=== PATIENT | female | born 1990 | race Caucasian/White ===

== ENCOUNTER 2017-10-22 01:15 | Inpatient (IN) | payer OTHER ==
[~2017-10-22 01:15] MED LIST: CITRIC ACID/SODIUM CITRATE 30 ML UNIT-DOSE CUP PO ONE; ELECTROLYTE-148 SOLN 500 ML IV ONE
[2017-10-22] MEDS ORDERED: ELECTROLYTE-148 SOLN 1,000 ML IV SCH (01:45)
[2017-10-22 02:13] VITALS: BMI 30.5
[2017-10-22] MEDS: ELECTROLYTE-148 SOLN 1,000 ML IV SCH (04:00)
[2017-10-22] MEDS ORDERED: morphine SULFATE/Preservative Free 0.5 MG/ML (1cc Syringe) ONE (04:23)
[2017-10-22] MEDS ORDERED: ceFAZolin SODIUM 1 GM VIAL ONE (04:23)
--- NOTE | 2017-10-22 04:38 | HP ---
Past Medical History - Admission Chief Complaint: Labor pain History of Present Illness: 27 yo , @ 38 weeks gestation with breech presentation, admitted for labor pain. She's now pre op for primary . History Source: Patient Limitations to Obtaining History: No Limitations - Past Medical History ...: 4 ...Para: 0 ...Term: 0 ...: 0 ...Spon : 0 ...Induced : 0 ...Multiple Gestation: 0 ...EDC by Sono: 11/03/17 - Past Surgical History Past Surgical History: Yes: None Hx Myomectomy: No Hx Transabdominal Cerclage: No - Smoking History Smoking history: Never smoked Have you smoked in the past 12 months: No - Alcohol/Substance Use Hx Alcohol Use: No History of Substance Use: reports: None - Social History Usual Living Arrangement: Yes: With Significant Other History of Recent Travel: No Home Medications - Allergies Allergies/Adverse Reactions: Allergies Allergy/AdvReac Type Severity Reaction Status Date / Time No Known Allergies Allergy Verified 10/22/17 01:38 - Home Medications Home Medications: Ambulatory Orders Vitamins (Sjr) - 1 tab PO DAILY 10/22/17 Family Disease History - Family Disease History Family History: Unremarkable Review of Systems - Review of Systems Constitutional: reports: No Symptoms Eyes: reports: No Symptoms HENT: reports: No Symptoms Neck: reports: No Symptoms Cardiovascular: reports: No Symptoms Respiratory: reports: No Symptoms Gastrointestinal: reports: No Symptoms Genitourinary: reports: Pain Breasts: reports: No Symptoms Reported Musculoskeletal: reports: No Symptoms Integumentary: reports: No Symptoms Neurological: reports: No Symptoms Endocrine: reports: No Symptoms Hematology/Lymphatic: reports: No Symptoms Psychiatric: reports: No Symptoms Pain Intensity: 7 Physical Exam - Maternity Vital Signs: Vital Signs Temperature 97.5 F L 10/22/17 01:15 Pulse Rate 62 10/22/17 01:15 Respiratory Rate 18 10/22/17 01:15 Blood Pressure 130/72 10/22/17 01:15 O2 Sat by Pulse Oximetry (%) Constitutional: Yes: Well Nourished Eyes: Yes: Conjunctiva Clear HENT: Yes: Atraumatic Neck: Yes: Supple Cardiovascular: Yes: Regular Rate and Rhythm Lungs: Clear to auscultation - Abdominal Exam/OB Number of Fetuses: Single Presentation: Vertex - Vaginal Exam/OB Dilatation (cm): 1 Effacement (%): 60 Station: -2 - Physical Exam Integumentary: Yes: WNL ...Motor Strength: WNL Psychiatric: Yes: Alert, Oriented Problem List - Problems (1) Breech Code(s): O32.1XX0 - MATERNAL CARE FOR BREECH PRESENTATION, UNSP Assessment/Plan IUP @ 38 weeks Breech Pre op for Consent signed Anesthesia to see patient
[2017-10-22] MEDS ORDERED: morphine SULFATE/Preservative Free 0.5 MG/ML (1cc Syringe) SPIN ONE (04:39)
[2017-10-22] MEDS ORDERED: ePHEDrine SULFATE 50 MG/1 ML AMPULE ONE (04:41)
[2017-10-22] MEDS ORDERED: OXYTOCIN 10 UNITS/ML VIAL ONE (04:52)
[2017-10-22] MEDS ORDERED: ONDANSETRON 4 MG/2 ML VIAL IVPUSH PRN (05:06)
[2017-10-22] MEDS ORDERED: METHYLERGONOVINE MALEATE 0.2 MG/1 ML AMP IM PRN (05:36)
[2017-10-22] MEDS ORDERED: IBUPROFEN 600 MG TABLET (FP) PO PRN (05:36)
--- NOTE | 2017-10-22 05:40 | OP ---
Operative Note - Note: Operative Date: 10/22/17 Pre-Operative Diagnosis: Labor pain / Breech Operation: Primary Low Transverse Findings: Baby girl in RSA position Post-Operative Diagnosis: Same as Pre-op Surgeon: Gisel Villasenor Ergonomic Specialist: Octavio Irwin Anesthesia: Spinal Specimens Removed: Placenta Estimated Blood Loss (mls): 600 Operative Report Dictated: Yes
[2017-10-22] MEDS ORDERED: OXYTOCIN 20 UNITS in 0.9% NS 20 UNIT/1,000 ML INFUS.BAG IV ONE (06:25)
[2017-10-22] MEDS: OXYTOCIN 20 UNITS in 0.9% NS 20 UNIT/1,000 ML INFUS.BAG IV SCH ×2 (06:28→11:42)
--- NOTE | 2017-10-22 06:34 | OP ---
DATE OF OPERATION: 10/22/2017 PREOPERATIVE DIAGNOSES: Pain in labor and breech presentation. POSTOPERATIVE DIAGNOSES: Pain in labor and breech presentation. PROCEDURE: Primary low transverse section. SURGEON: Gisel Villasenor MD APPLIANCE REPAIRER: ANDREEA Bee ANESTHESIA: Spinal. COMPLICATIONS: None. ESTIMATED BLOOD LOSS: 600 mL. PROCEDURE: Patient was taken to the operating room where spinal anesthesia was administered. Patient was then prepped and draped in proper sterile fashion. A Pfannenstiel skin incision was made and carried down to the underlying layer of fascia. The fascia was incised in the midline and extended laterally. The superior aspect of the fascial incision was then grasped with a Mau clamp, elevated and the rectus muscle dissected off bluntly. Attention was then turned to the inferior aspect of the fascial incision which in a similar fashion was then grasped with a Mau clamp, elevated and the rectus muscle dissected off bluntly. The rectus muscle was then in the midline, the peritoneum identified and entered sharply with the Metzenbaum scissors. This incision was extended superiorly and inferiorly with good visualization of the bladder and the vesicouterine peritoneum was then grasped with a pickup and entered sharply with the Metzenbaum scissors. This incision was extended laterally and a bladder flap created digitally. The bladder blade was reinserted and using a 10 blade the lower uterine segment was incised and the buttocks were delivered. Baby was found to be in jaylene breech position and then using a towel around the baby's waist the baby was turned on a 90-degree angle and both sides were delivered. The nose and mouth were suctioned and the cord clamped and cut. The was handed to the waiting nurse discharge. The placenta was removed manually. The uterus was exteriorized to clear all the debris and the uterine incision was repaired using 0 Biosyn in a running locked fashion. A 2nd layer of the same suture was used as a means to provide excellent hemostasis. The vesicouterine peritoneum was also closed and the pelvis was irrigated. The uterus was returned to the abdomen. The peritoneum was closed using 2-0 Biosyn and the fascia was reapproximated using 0 Vicryl in a running fashion. The skin was closed in a subcuticular fashion using 3-0 Vicryl. Patient tolerated procedure well. Patient was then taken to PACU in stable condition. PATHOLOGY: Placenta. GISEL VILLASENOR M.D. BLAS/[id number]
[2017-10-22] MEDS: PRENATAL VITAMINS W/ FOLIC ACID TABLET (FP) PO SCH (10:24)
[2017-10-22] MEDS: FERROUS SO4 325 MG TABLET (FP) PO SCH ×2 (10:24→21:28)
[2017-10-22] MEDS: IBUPROFEN 800 MG/8 ML IJ IVPB PRN (15:44)
[2017-10-22] MEDS: oxyCODONE HCL 5 MG TABLET PO PRN (21:28)
[2017-10-22] MEDS: SIMETHICONE 80 MG TAB.CHEW (FP) PO PRN (21:28)
[2017-10-23] MEDS: IBUPROFEN 800 MG/8 ML IJ IVPB PRN (00:33)
[2017-10-23] MEDS ORDERED: BISACODYL 10 MG SUPP.RECT RC PRN (05:36)
[2017-10-23] MEDS: SIMETHICONE 80 MG TAB.CHEW (FP) PO PRN ×4 (05:45→21:28)
[2017-10-23] MEDS: oxyCODONE HCL 5 MG TABLET PO PRN ×4 (05:45→21:29)
[2017-10-23] MEDS: ACETAMINOPHEN 325 MG TABLET (FP) PO PRN ×4 (05:46→21:29)
[2017-10-23 08:27] LABS: BASO % 0.3 % (0-2.0); EOS % 0.4 % (0-4.5); HEMATOCRIT 34.6 % (32.4-45.2); HEMOGLOBIN 11.8 GM/dL (10.7-15.3); LYMPH % 17.1 % (8-40); MCH 30.9 pg (25.7-33.7); MCHC 34.1 g/dl (32.0-36.0); MEAN CELL VOLUME 90.7 fl (80-96); MEAN PLT VOLUME 7.7 fl (7.5-11.1); MONO % 11.3 % (3.8-10.2); NEUT % 70.9 % (42.8-82.8); PLATELET COUNT 216 K/MM3 (134-434); RBC 3.81 M/mm3 (3.60-5.2); WHITE BLOOD COUNT 12.5 K/mm3 (4.0-10.0)
[2017-10-23] MEDS: IBUPROFEN 600 MG TABLET (FP) PO PRN ×2 (08:41→18:05)
--- NOTE | 2017-10-23 09:04 | PN ---
Progress Note, Physician Chief Complaint: Pt. ambulating and voiding, pain controlled, no anesthesia complaints. - Current Medication List Current Medications: Active Medications Acetaminophen (Tylenol -) 650 mg PO Q4H PRN PRN Reason: PAIN Last Admin: 10/23/17 05:46 Dose: 650 mg Bisacodyl (Dulcolax Suppository -) 10 mg RC PRN PRN PRN Reason: CONSTIPATION Diphenhydramine HCl (Benadryl Injection -) 25 mg IVPUSH Q4H PRN PRN Reason: Pruritis Last Admin: 10/22/17 21:30 Dose: 25 mg Ferrous Sulfate (Feosol -) 325 mg PO BID [facility] Last Admin: 10/22/17 21:28 Dose: 325 mg Parenteral Electrolytes (Plasma-Lyte 148 -) 1,000 mls @ 125 mls/hr IV ASDIR [facility] Last Admin: 10/22/17 04:00 Dose: 125 mls/hr Oxytocin/Sodium Chloride (Normal Saline+20 Units Oxytocin -) 20 unit in 1,000 mls @ 125 mls/hr IV ASDIR [facility] Last Admin: 10/22/17 11:42 Dose: 125 mls/hr Ibuprofen (Motrin -) 600 mg PO Q4H PRN PRN Reason: PAIN Last Admin: 10/23/17 08:41 Dose: 600 mg Ibuprofen (Caldolor Injection -) 800 mg IVPB Q8H PRN PRN Reason: PAIN Last Admin: 10/23/17 00:33 Dose: 800 mg Methylergonovine Maleate (Methergine Injection -) 0.2 mg IM Q4H PRN PRN Reason: Excessive Bleeding (L&D) Ondansetron HCl (Zofran Injection) 4 mg IVPUSH Q4H PRN PRN Reason: NAUSEA Oxycodone HCl (Roxicodone -) 5 mg PO Q4H PRN PRN Reason: PAIN LEVEL 4 - 6 Last Admin: 10/23/17 05:45 Dose: 5 mg Multivit/Folic Acid/Iron ( Vitamins (Sjr) -) 1 tab PO DAILY [facility] Last Admin: 10/22/17 10:24 Dose: Not Given Simethicone (Mylicon -) 80 mg PO Q4H PRN PRN Reason: GAS Last Admin: 10/23/17 05:45 Dose: 80 mg - Objective Vital Signs: Vital Signs Temperature 98.3 F 10/23/17 04:00 Pulse Rate 61 10/23/17 04:00 Respiratory Rate 18 10/23/17 06:00 Blood Pressure 112/65 10/23/17 04:00 O2 Sat by Pulse Oximetry (%) 100 10/22/17 21:30 Constitutional: Yes: Well Nourished, No Distress, Calm Musculoskeletal: Yes: WNL Neurological: Yes: WNL, Alert, Oriented ...Motor Strength: WNL Labs: CBC, BMP 10/23/17 06:30 Assessment/Plan POD#1 s/p under spinal with duramorph. Doing well. D/C from anesthesia care.
[2017-10-23] MEDS: FERROUS SO4 325 MG TABLET (FP) PO SCH ×2 (10:29→21:28)
[2017-10-23] MEDS: PRENATAL VITAMINS W/ FOLIC ACID TABLET (FP) PO SCH (10:29)
--- NOTE | 2017-10-23 22:13 | PN ---
Post Progress Note - Subjective Subjective: 27 yo Para 1 status post primary , seen and evaluated. Doing well. Post Day: 1 Type of Delivery: Primary C/S Vital Signs: Vital Signs Temperature 98.4 F 10/23/17 15:20 Pulse Rate 74 10/23/17 15:20 Respiratory Rate 20 10/23/17 15:20 Blood Pressure 135/80 10/23/17 15:20 O2 Sat by Pulse Oximetry (%) 100 10/22/17 21:30 Breast Exam: Yes: Soft Uterus: Yes: Fundus Firm Incision: Yes: Dressing dry and intact Abdomen/GI: Yes: Abdomen soft, Tolerating PO Lochia: Yes: Rubra Lochia, amount: Small Extremities: Yes: Calves non-tender Activity: Ambulating - Labs Labs: CBC WBC 12.5 K/mm3 (4.0-10.0) H D 10/23/17 06:30 RBC 3.81 M/mm3 (3.60-5.2) 10/23/17 06:30 Hgb 11.8 GM/dL (10.7-15.3) 10/23/17 06:30 Hct 34.6 % (32.4-45.2) 10/23/17 06:30 MCV 90.7 fl (80-96) 10/23/17 06:30 MCH 30.9 pg (25.7-33.7) 10/23/17 06:30 MCHC 34.1 g/dl (32.0-36.0) 10/23/17 06:30 RDW 13.0 % (11.6-15.6) 10/23/17 06:30 Plt Count 216 K/MM3 (134-434) 10/23/17 06:30 MPV 7.7 fl (7.5-11.1) 10/23/17 06:30 Neutrophils % 70.9 % (42.8-82.8) 10/23/17 06:30 Lymphocytes % 17.1 % (8-40) 10/23/17 06:30 Monocytes % 11.3 % (3.8-10.2) H 10/23/17 06:30 Eosinophils % 0.4 % (0-4.5) 10/23/17 06:30 Basophils % 0.3 % (0-2.0) 10/23/17 06:30 Problem List - Problems (1) Breech Code(s): O32.1XX0 - MATERNAL CARE FOR BREECH PRESENTATION, UNSP (2) Status post primary low transverse section Code(s): Z98.891 - HISTORY OF UTERINE SCAR FROM PREVIOUS SURGERY Assessment/Plan Status post primary Ambulation Analgesia as needed Continue post op care
[2017-10-24] MEDS: oxyCODONE HCL 5 MG TABLET PO PRN ×5 (03:39→20:29)
[2017-10-24] MEDS: ACETAMINOPHEN 325 MG TABLET (FP) PO PRN ×2 (03:39→07:39)
[2017-10-24] MEDS: SIMETHICONE 80 MG TAB.CHEW (FP) PO PRN ×5 (03:39→20:29)
--- NOTE | 2017-10-24 04:42 | PN ---
Post Progress Note - Subjective Subjective: 27 yo Para status post primary , seen and evaluated. She's ambulating and c/o incision pain. Post Day: 2 Type of Delivery: Primary C/S Vital Signs: Vital Signs Temperature 98.3 F 10/23/17 22:00 Pulse Rate 66 10/23/17 22:00 Respiratory Rate 18 10/23/17 22:00 Blood Pressure 119/66 10/23/17 22:00 O2 Sat by Pulse Oximetry (%) 100 10/22/17 21:30 Breast Exam: Yes: Soft Uterus: Yes: Fundus Firm Incision: Yes: Other (Dressing removed, steri strips intact) Abdomen/GI: Yes: Abdomen soft, Tolerating PO Lochia: Yes: Rubra Lochia, amount: Small Extremities: Yes: Calves non-tender Perineum: Yes: Intact Activity: Ambulating - Labs Labs: CBC WBC 12.5 K/mm3 (4.0-10.0) H D 10/23/17 06:30 RBC 3.81 M/mm3 (3.60-5.2) 10/23/17 06:30 Hgb 11.8 GM/dL (10.7-15.3) 10/23/17 06:30 Hct 34.6 % (32.4-45.2) 10/23/17 06:30 MCV 90.7 fl (80-96) 10/23/17 06:30 MCH 30.9 pg (25.7-33.7) 10/23/17 06:30 MCHC 34.1 g/dl (32.0-36.0) 10/23/17 06:30 RDW 13.0 % (11.6-15.6) 10/23/17 06:30 Plt Count 216 K/MM3 (134-434) 10/23/17 06:30 MPV 7.7 fl (7.5-11.1) 10/23/17 06:30 Neutrophils % 70.9 % (42.8-82.8) 10/23/17 06:30 Lymphocytes % 17.1 % (8-40) 10/23/17 06:30 Monocytes % 11.3 % (3.8-10.2) H 10/23/17 06:30 Eosinophils % 0.4 % (0-4.5) 10/23/17 06:30 Basophils % 0.3 % (0-2.0) 10/23/17 06:30 Problem List - Problems (1) Breech Code(s): O32.1XX0 - MATERNAL CARE FOR BREECH PRESENTATION, UNSP (2) Status post primary low transverse section Code(s): Z98.891 - HISTORY OF UTERINE SCAR FROM PREVIOUS SURGERY Assessment/Plan Status post primary Ambulation Analgesia as needed Continue post op care
[2017-10-24] MEDS: OXYTOCIN 20 UNITS in 0.9% NS 20 UNIT/1,000 ML INFUS.BAG IV SCH (07:37)
[2017-10-24] MEDS: IBUPROFEN 600 MG TABLET (FP) PO PRN ×4 (08:12→20:29)
[2017-10-24] MEDS: PRENATAL VITAMINS W/ FOLIC ACID TABLET (FP) PO SCH (10:26)
[2017-10-24] MEDS: FERROUS SO4 325 MG TABLET (FP) PO SCH ×2 (10:28→21:08)
[2017-10-25] MEDS: SIMETHICONE 80 MG TAB.CHEW (FP) PO PRN ×5 (00:36→23:41)
[2017-10-25] MEDS: oxyCODONE HCL 5 MG TABLET PO PRN ×2 (00:36→04:30)
[2017-10-25] MEDS: IBUPROFEN 600 MG TABLET (FP) PO PRN ×5 (00:36→23:41)
--- NOTE | 2017-10-25 07:09 | PN ---
Post Note - Post Date of Delivery: 10/22/17 Vital Signs: Vital Signs - 24 hr 10/24/17 10/24/17 10:00 21:54 Temperature 98.6 F 98.4 F Pulse Rate 70 70 Respiratory 20 20 Rate Blood Pressure 109/71 116/67 - Subjective Subjective: No Complaints, Ambulating - Objective Afebrile: Yes Breast: Not engorged Abdomen: Non-tender Uterus: Fundus firm Vagina: Scant lochia Extremities: Non-tender - Assessment/Plan (1) Status post primary low transverse section Assessment: Other (POD 3 stable) Plan: Routine Care, Other (DC home in am RTO 4 week)
[2017-10-25 08:26] LABS: BASO % 0.4 % (0-2.0); EOS % 3.4 % (0-4.5); HEMATOCRIT 30.2 % (32.4-45.2); HEMOGLOBIN 10.3 GM/dL (10.7-15.3); MCHC 34.2 g/dl (32.0-36.0); MEAN CELL VOLUME 90.6 fl (80-96); MEAN PLT VOLUME 7.5 fl (7.5-11.1); MONO % 9.5 % (3.8-10.2); NEUT % 61.7 % (42.8-82.8); PLATELET COUNT 240 K/MM3 (134-434); RBC 3.33 M/mm3 (3.60-5.2); RDW 12.9 % (11.6-15.6); WHITE BLOOD COUNT 6.1 K/mm3 (4.0-10.0)
[2017-10-25] MEDS: ACETAMINOPHEN 325 MG TABLET (FP) PO PRN ×3 (09:21→23:41)
[2017-10-25] MEDS: FERROUS SO4 325 MG TABLET (FP) PO SCH ×2 (09:21→23:10)
[2017-10-25] MEDS: PRENATAL VITAMINS W/ FOLIC ACID TABLET (FP) PO SCH (09:21)
[2017-10-25] MEDS ORDERED: oxyCODONE HCL 5 MG TABLET PO PRN (13:07)
[2017-10-25] MEDS: OXYTOCIN 20 UNITS in 0.9% NS 20 UNIT/1,000 ML INFUS.BAG IV SCH (14:10)
[2017-10-25] MEDS: ELECTROLYTE-148 SOLN 1,000 ML IV SCH (14:11)
[2017-10-26 01:00] VITALS: TEMP 98.4
[2017-10-26 08:12] VITALS: BP 120/79; PULSE 62
[2017-10-26] MEDS: FERROUS SO4 325 MG TABLET (FP) PO SCH (09:44)
[2017-10-26] MEDS: PRENATAL VITAMINS W/ FOLIC ACID TABLET (FP) PO SCH (09:44)
--- NOTE | 2017-10-26 10:53 | DS ---
Physical Exam-HEMATOLOGY NURSE Vital Signs: Vital Signs Temperature 98.4 F 10/26/17 07:30 Pulse Rate 62 10/26/17 07:30 Respiratory Rate 20 10/26/17 07:30 Blood Pressure 120/79 10/26/17 07:30 O2 Sat by Pulse Oximetry (%) 100 10/22/17 21:30 Constitutional: Yes: Well Nourished Eyes: Yes: Conjunctiva Clear HENT: Yes: Atraumatic Neck: Yes: Supple Cardiovascular: Yes: Regular Rate and Rhythm Respiratory: Yes: Regular Gastrointestinal: Yes: Normal Bowel Sounds External Genitalia: Yes: Normal Vaginal Exam: Yes: Normal Cervix: Yes: Normal Uterus: Yes: Firm Wound/Incision: Yes: Well Approximated, Steri Strips (in place) Neurological: Yes: Alert, Oriented ...Motor Strength: WNL Psychiatric: Yes: Alert, Oriented Labs: CBC, BMP 10/25/17 07:15 Delivery - Delivery Type of Anesthesia: Spinal Episiotomy/Laceration: None EBL (cc): 600 Delivery, Single - Stages of Labor Date 1st Stage Initiatied: 10/22/17 Time 1st Stage Initiated: 00:00 Date of Delivery: 10/22/17 Time of Delivery: 04:53 Time Placenta Delivered: 04:54 - Condition of Infant Church Secretary/Call Center Support Representative Present: Yes Name: Eric Loza Gender: Female Weight: 7 lb 4 oz Position: Right, SA Total Hours ROM (Hrs/Mins): 2min - 1 Minute Total Score: 9 5 Minutes Total Score: 9 - [place] Feeding Plan Initial Plan: Elected not to breastfeed exclusively throughout hospitalization Discharge Summary Reason For Visit: C/SECTION BREECH Current Active Problems Breech (Acute) Status post primary low transverse section (Acute) Procedures: Principal: Primary Low Transverse Hospital Course: Routine post op care Condition: Good - Instructions Diet, Activity, Other Instructions: Regular diet No driving, no lifting x 2 weeks F/U with MD in 2 weeks Disposition: HOME - Home Medications Comprehensive Discharge Medication List: Ambulatory Orders Vitamins (Sjr) - 1 tab PO DAILY 10/22/17
[2017-10-26] MEDS: IBUPROFEN 600 MG TABLET (FP) PO PRN (11:09)
[2017-10-26] MEDS: ACETAMINOPHEN 325 MG TABLET (FP) PO PRN (11:10)
[2017-10-26] MEDS: SIMETHICONE 80 MG TAB.CHEW (FP) PO PRN (11:11)
--- NOTE | 2017-10-26 17:07 | PATH ---
Surgical Pathology Report Patient Name: MANUEL MANCINI Med. Rec. 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 Specimen(s) Received PLACENTA Clinical History , 38.1 weeks, breach in labor Final Diagnosis PLACENTA, SECTION: 365 g THIRD TRIMESTER PLACENTA WITH TRIVASCULAR UMBILICAL CORD AND UNREMARKABLE PLACENTAL MEMBRANES. Electronically Signed Ludmila Saucedo M.D. Gross Description The specimen is received fresh labeled placenta and is a 365 gram, 18.0 x 14.5 x 2.2 cm. placenta with attached membranes and umbilical cord. The attached membranes are antonio, translucent with focal opacities and insert marginally. The umbilical cord measures 28 cm. in length and averages 1 cm. in diameter. The cord inserts centrally. No true knots or strictures are identified. Cut surface of the umbilical cord reveals 3 vessels. The surface is messer-blue with minimal fibrin deposition and appropriate caliber vessels. The maternal surface is red-brown with focal defects. Sectioning reveals red-brown, spongy parenchyma. No lesions are identified. Manager Proposal sections are submitted in three cassettes as follows: 1- membrane rolls and umbilical cord; 2-3- full thickness sections of placenta. /10/25/[address] [facility]10/25/2017
== END 2017-10-26 14:00 | disposition home or self-care (01) | DRG 540 ==
LOC: JLDR 01:15 → J3W 08:06
PROVIDERS: ADMIT Obstetrics & Gynecology; ATTEND Obstetrics & Gynecology
PROC: 10D00Z1 Extraction of Products of Conception, Low, Open Approach (ICD-10-PCS; principal; 2017-10-22)
DX: O32.1XX0 Maternal care for breech presentation, not applicable or unspecified (principal); Z3A.38 38 weeks gestation of pregnancy; Z37.0 Single live birth
CPT/HCPCS: 36415; 85025; 88307-TC